=== PATIENT | female | born 1975 | race Caucasian/White ===

== ENCOUNTER 2017-09-03 08:00 | Outpatient (CLI) | payer OTHER | END 2017-09-03 08:01 | disposition home or self-care (01) | LOC: LAB.R 08:00 | PROVIDERS: ATTEND Family Medicine | DX: B97.89 Other viral agents as the cause of diseases classified elsewhere (principal) | CPT/HCPCS: 87275; 87276 ==

== ENCOUNTER 2017-12-21 12:49 | Outpatient (CLI) | payer OTHER ==
--- NOTE | 2017-12-24 16:28 | Mammography Report ---
Procedure Date: 12/21/2017 Accession Number: [id number] / [id number] Procedure: KRISH - Screening Mammo Dig Bilat CPT Code: FULL RESULT: EXAM: Screening Mammo Dig Bilat DATE: 12/21/2017 1:09 PM CLINICAL HISTORY: Baseline examination TECHNIQUE: Bilateral CC and MLO views were obtained. COMPARISON: None FINDINGS: There are scattered fibroglandular densities. No suspicious masses, clustered microcalcifications, or regions of architectural distortion are identified. IMPRESSION: Negative. RECOMMENDATION: Routine annual screening unless otherwise clinically indicated. BIRADS CATEGORY 1: Negative. STANDARD QUALIFYING STATEMENTS: 1. This examination was reviewed with the aid of Computer-Aided Detection (CAD). 2. A negative or benign imaging report should not delay biopsy if clinically suspicious findings are present. Consider surgical consultation if warrented. More than 5% of cancers are not identified by imaging. 3. Dense breasts may obscure an underlying neoplasm.
== END 2017-12-21 12:50 | disposition home or self-care (01) ==
LOC: DI 12:49
PROVIDERS: ATTEND Family Medicine
DX: Z12.31 Encounter for screening mammogram for malignant neoplasm of breast (principal)
CPT/HCPCS: 77067

== ENCOUNTER 2018-07-13 08:23 | Outpatient (CLI) | payer OTHER ==
--- NOTE | 2018-07-13 20:01 | Ultrasound Report ---
Reason: LIVER FUNCTION TESTS, ABNORMAL Procedure Date: 07/13/2018 Accession Number: [id number] / [id number] Procedure: US - Abdomen Complete CPT Code: FULL RESULT: EXAM: ABDOMEN ULTRASOUND EXAM DATE: 07/13/2018 09:12 AM. CLINICAL HISTORY: LIVER FUNCTION TESTS, ABNORMAL. COMPARISON: None. TECHNIQUE: Real-time scanning was performed with static images obtained. FINDINGS: Liver: Increased echogenicity. No focal hepatic lesions or intrahepatic biliary dilatation. 16.2 cm. Main portal vein flow: Hepatopetal. Gallbladder: No stones, wall thickening, or sonographic Richmond's sign. Biliary System: Common bile duct measures 6 mm. No intrahepatic or extrahepatic ductal dilatation. Pancreas: Limited visualization. Kidneys: Right: 11.8 cm longitudinally. Normal. No contour-deforming mass, stones, or hydronephrosis. Left: 11.4 cm longitudinally. Cyst measures 2.1 cm. No contour-deforming mass, stones, or hydronephrosis. Spleen: 11.7 cm. Normal in size and echotexture. Aorta and Inferior Vena Cava: Unremarkable. Other: None. IMPRESSION: Hepatic steatosis. RADIA
== END 2018-07-13 08:24 | disposition home or self-care (01) ==
LOC: DI 08:23
PROVIDERS: ATTEND Family Medicine
DX: R94.5 Abnormal results of liver function studies (principal); K76.0 Fatty (change of) liver, not elsewhere classified
CPT/HCPCS: 76700

== ENCOUNTER 2018-11-15 08:00 | Outpatient (CLI) | payer OTHER | END 2018-11-15 23:59 | disposition home or self-care (01) | LOC: LAB.R 08:00 | PROVIDERS: ATTEND Physician Assistant | DX: R35.0 Frequency of micturition (principal) | CPT/HCPCS: 87086 ==

== ENCOUNTER 2019-06-25 08:02 | Outpatient (CLI) | payer OTHER ==
--- NOTE | 2019-06-25 18:00 | XRAY Report ---
Reason: LEFT FOOT PAIN Procedure Date: 06/25/2019 Accession Number: [id number] / [id number] Procedure: WCP - Foot 3 View LT CPT Code: Final Report FULL RESULT: EXAM: LEFT FOOT RADIOGRAPHY EXAM DATE: 06/25/2019 08:02 AM. CLINICAL HISTORY: LEFT FOOT PAIN. COMPARISON: None. TECHNIQUE: 3 views. FINDINGS: Bones: There is obliquely oriented fracture through the base of the third proximal phalanx. No significant displacement. Joints: Normal. No subluxations. Soft Tissues: There is mild forefoot dorsal soft tissue swelling. IMPRESSION: 1. There is minimally displaced, obliquely oriented fracture through the fifth proximal phalanx. 2. No evidence of dislocation. RADIA
== END 2019-06-25 23:59 | disposition home or self-care (01) ==
LOC: DI.WCP 08:02
PROVIDERS: ATTEND Family Medicine
DX: S92.512A Displaced fracture of proximal phalanx of left lesser toe(s), initial encounter for closed fracture (principal)

== ENCOUNTER 2019-09-18 13:02 | Emergency (ER) | payer OTHER, BC ==
[2019-09-18] MEDS ORDERED: PROPARACAINE 0.5% OPHTH DROPS 15 ML EACHEYE STA (13:14)
--- NOTE | 2019-09-18 13:26 | ED Physician Documentation ---
PD HPI URI - Stated complaint Stated Complaint: BLEACH RT EYE - Chief complaint Chief Complaint: Heent - History obtained from History obtained from: Patient - History of Present Illness Timing - onset: Today (She was at work today and accidentally got some regular strength bleach in her right eye. Her eye seems inflamed but her vision is normal. She already flushed.) Review of Systems Eyes: reports: Discharge, Irritation. denies: Loss of vision, Decreased vision, Photophobia Nose: reports: Reviewed and negative Throat: reports: Reviewed and negative PD PAST MEDICAL HISTORY - Allergies Allergies/Adverse Reactions: Allergies Allergy/AdvReac Type Severity Reaction Status Date / Time No Known Drug Allergies Allergy Verified 09/18/19 13:10 PD ED PE NORMAL - Vitals Vital signs reviewed: Yes - General General: Alert and oriented X 3, No acute distress - HEENT HEENT: PERRL, EOMI, Other (She has conjunctivitis of the right eye, no discharge. pH is 5.5. Fluorescein negative.) - Neck Neck: Supple, no meningeal sign, No bony TTP - Neuro Neuro: Alert and oriented X 3, Normal speech Results - Vitals Vitals: Vital Signs - 24 hr 09/18/19 13:06 Temperature 36 C L Heart Rate 95 Respiratory 16 Rate Blood Pressure 145/86 H O2 Saturation 97 Oxygen O2 Source Room air Departure - Departure Disposition: 01 Home, Self Care Clinical Impression: Chemical exposure of eye Condition: Good Record reviewed to determine appropriate education?: Yes Instructions: ED Chemical Conjunctivitis Comments: Return if worse or in 2 days if not better. Don't wear your contacts through the weekend.
[2019-09-18 13:41] VITALS: BP 140/85
== END 2019-09-18 13:41 | disposition home or self-care (01) ==
LOC: ED 13:02
DX: T54.91XA Toxic effect of unspecified corrosive substance, accidental (unintentional), initial encounter (principal); H10.211 Acute toxic conjunctivitis, right eye; Y93.89 Activity, other specified; Y92.89 Other specified places as the place of occurrence of the external cause; Y99.0 Civilian activity done for income or pay
CPT/HCPCS: 99282; 99284; J3490

== ENCOUNTER 2020-01-14 11:14 | Outpatient (CLI) | payer BC, OTHER ==
--- NOTE | 2020-01-15 08:54 | Mammography Report ---
BILATERAL DIGITAL SCREENING MAMMOGRAM 3D/2D: 01/14/2020 CLINICAL: Routine screening. Comparison is made to exam dated: 12/21/2017 mammogram - [facility]. There are sca ttered fibroglandular elements in both breasts. There is a 0.6 cm oval asymmetry in the right breast anterior depth central to the nipple seen on the craniocaudal view only. This is more prominent. There is a 0.5 cm oval equal density asymmetry in the left breast anterior depth central to the nippl e seen on the craniocaudal view only. This is more prominent. No other significant masses or calcifications are seen in either breast. IMPRESSION: INCOMPLETE: NEEDS ADDITIONAL IMAGING EVALUATION The 0.6 cm oval asymmetry in the right breast anterior depth central to the nipple seen on the cranio caudal view only is indeterminate. Additional views with possible ultrasound are recommended. The 0.5 cm oval equal density asymmetry in the left breast anterior depth central to the nipple seen on the craniocaudal view only is indeterminate. Additional views with possible ultrasound are recomm ended. This exam was interpreted at Station ID: [id number]. NOTE: For mammograms, a report in lay terms will be sent to the patient. Approximately 15% of breast malignancies will not be visualized mammographically. In the management of a palpable breast mass, a negative mammogram must not discourage biopsy of a clinically suspicious lesion. Electronically Signed By: Jonas Brandon M.D. aty/:01/14/2020 16:57:35 ACR BI-RADS Category 0: Incomplete 3340F PARENCHYMAL PATTERN: (A) - The breast(s) demonstrate(s) scattered fibroglandular densities. BI-RADS CATEGORY: (0) - 0 Mammo and [place] [id number] Immediate follow-up LATERALITY: (B)
== END 2020-01-14 11:15 | disposition home or self-care (01) ==
LOC: DI 11:14
DX: Z12.31 Encounter for screening mammogram for malignant neoplasm of breast (principal); R92.8 Other abnormal and inconclusive findings on diagnostic imaging of breast
CPT/HCPCS: 77063; 77067